=== PATIENT | female | born 1985 | race African-American/Black ===

== ENCOUNTER 2017-08-17 08:14 | Day surgery (SDC) | payer BC ==
[2017-08-17] VITALS (22 sets, daily range): BP systolic 98–129; BP diastolic 42–82; PULSE 62–88; RESP 16–25; Ht 154.9 cm; Wt 78.3 kg
[~2017-08-17] VITALS: Ht 154.9 cm; Wt 78.3 kg
[2017-08-17] MEDS ORDERED: SOD CHLORIDE 0.9% 1,000 ML IV SCH (08:30)
[2017-08-17] MEDS ORDERED: CEFAZOLIN 2 GM/50 ML (PMX) 50 ML IVPB ONE (08:30)
[2017-08-17] MEDS ORDERED: BUPIVACAINE 0.25% (MPF) 30 ML INJ ONE (10:30)
[2017-08-17] MEDS ORDERED: MIDAZOLAM 1 MG/ML 2 ML INJ ONE (10:33)
[2017-08-17] MEDS ORDERED: ROCURONIUM 50 MG INJ ONE (11:36)
[2017-08-17] MEDS ORDERED: PROPOFOL 20 ML ONE (11:36)
[2017-08-17] MEDS ORDERED: GLYCOPYRROLATE 0.4 MG INJ ONE (11:36)
[2017-08-17] MEDS ORDERED: NEOSTIGMINE 3 MG/3 ML SYRINGE ONE (11:36)
[2017-08-17] MEDS ORDERED: CEFAZOLIN 1 GM INJ ONE (11:36)
[2017-08-17] MEDS ORDERED: LIDOCAINE 2% (SDV) 5 ML INJ ONE (11:36)
[2017-08-17] MEDS ORDERED: ONDANSETRON 4 MG INJ ONE ×2 (11:37→11:49)
--- NOTE | 2017-08-17 11:42 | OPR ---
Date/Time of Note Date/Time of Note DATE: 08/17/17 TIME: 11:39 Operative Report Procedure Date: Aug 17, 2017 Preoperative Diagnosis symptomatic gallstones Postoperative Diagnosis same Operation/Procedure Performed 1. laparoscopic cholecystectomy 2. therapeutic injection of subcutaneous local anesthesia Surgeon see signature line Visual Merchandising Manager none Anesthesia Type: general Estimated Blood Loss: 0 - 10 ml's Transfusion none Specimen gallstones Grafts/Implants none Complications none Pt Condition Post Procedure: stable Indications This is a 31-year-old female with symptomatic gallstones. She requests surgical excision of her gallbladder. Risks alternatives benefits and percent were discussed the patient. Patient expresses understanding and consents to the operation. Procedure Description Patient taken to the OR and prepped and draped in usual sterile fashion. Surgical timeout was performed. IV antibiotics given. Infraumbilical transverse incision is made with a 15 blade. Dissection Carrs carried onto the fascia. The fascia was grasped with Twin's and divided with curved Medrano scissors. 0 Vicryl U stitch was placed into the fascia. Blueness on trocar is introduced. Pneumoperitoneum is established. Midepigastric 12 mm optical trocar was placed under direct visualization. Right upper quadrant upper flank 5 mm optical trochars were placed under direct visualization. Upon initial inspection there are some adhesions to the gallbladder which were taken down bluntly. The gallbladder was grasped the fundus and retracted in a lateral and outward direction. This allowed her cautery to be used for careful dissection laterally and continued dissection to isolate the cystic duct and cystic artery. The critical view was established. The cystic duct was divided with 3 clips proximal and distally with a 35 mm echelon vascular stapler due to thickened tissues. The cystic artery was divided with 3 clips proximal and clip distal. The gallbladder was taken off the gallbladder bed. There is good hemostasis. The gallbladder was retrieved using Endo Catch bag. Ports removed under direct visualization. 0 Vicryl U stitch was tied down. Skin was closed with interrupted and running 4-0 Monocryl. Therapeutic subcutaneous local anesthesia was injected throughout the incision site. Dry dressings were applied. Jon DOVER Aug 17, 2017 11:42
[2017-08-17] MEDS ORDERED: MEPERIDINE 25 MG INJ IV PRN (12:00)
[2017-08-17] MEDS ORDERED: HYDROCODONE/APAP (5/325) TAB PO ONE (12:00)
[2017-08-17] MEDS ORDERED: DIPHENHYDRAMINE 50 MG INJ IV PRN (12:00)
[2017-08-17] MEDS ORDERED: HYDROmorphONE (0.2 MG/ML) 10ML SYG IV PRN ×2 (12:00)
[2017-08-17] MEDS ORDERED: ONDANSETRON 4 MG INJ IV PRN (12:00)
[2017-08-17] MEDS ORDERED: FENTAnyl 50 MCG/ML VIAL IV PRN (12:00)
[2017-08-17] MEDS ORDERED: METOCLOPRAMIDE 10 MG INJ IV PRN (12:00)
== END 2017-08-17 15:50 | disposition home or self-care (01) ==
LOC: SDS 08:14
PROVIDERS: ATTEND Surgery
DX: K80.10 Calculus of gallbladder with chronic cholecystitis without obstruction (principal); E66.9 Obesity, unspecified; Z68.32 Body mass index [BMI] 32.0-32.9, adult
CPT/HCPCS: 47562; 84703; 88304; J0690; J1170; J2250; J2405; J2710; J3010; Z7512; Z7610

== ENCOUNTER 2018-04-28 08:10 | Day surgery (SDC) | END 2018-04-28 12:01 | disposition home or self-care (01) ==